=== PATIENT | male | born 1955 | race African-American/Black ===

== ENCOUNTER 2025-05-10 03:23 | Inpatient (IN) | payer OTHER, MEDICAID, MEDICARE ==
[2025-05-10] VITALS (71 sets, daily range): BP systolic 84–145; BP diastolic 68–96; PULSE 87–130; RESP 14–28; TEMP 37.1–37.6; O2SAT 95–100
[~2025-05-10] VITALS: Ht 175.3 cm; Wt 68.0 kg
[2025-05-10] MEDS: ALBUTEROL (0.083%) 2.5MG/3ML NEB HHN ONE (03:30)
[2025-05-10] MEDS: LEVETIRACETAM 500MG PREMIX 100 ML IV ONE (03:55)
[2025-05-10 04:12] LABS: INR 1.5
[2025-05-10 04:15] LABS: CREATININE 1.0 mg/dL (0.6-1.3); TROPONIN I HIGH SENSITIVITY 13 ng/L (3.0-53); UREA NITROGEN BLOOD 11 mg/dL (9-23)
[2025-05-10 04:17] LABS: ASPARTATE AMINOTRANSFERASE 99 IU/L (<34); BILIRUBIN DIRECT 0.8 mg/dL (<=3.0)
[2025-05-10 04:18] LABS: BASOPHILS % 0.3 % (0.0-2.0); BILIRUBIN TOTAL 1.7 mg/dL (0.1-1.0); EOSINOPHILS % 1.8 % (0.0-5.0); HEMATOCRIT. 45.4 % (42.0-52.0); HEMOGLOBIN. 13.8 g/dL (14.0-18.0); LYMPHOCYTES % 29.9 % (20.0-50.0); MEAN PLATELET VOLUME 8.6 fl (7.4-10.4); MONOCYTES % 9.0 % (2.0-8.0); NEUTROPHILS % 59.0 % (40.0-76.0); PLATELET 109 x1000/uL (130-400); PROTEIN TOTAL 6.5 g/dL (6.0-8.3); RED BLOOD CELL COUNT 4.08 mill/uL (4.7-6.1); RED CELL DISTRIBUTION WIDTH 14.6 % (11.6-14.6)
[2025-05-10 04:23] LABS: ADD RBC MORPHOLOGY YES
[2025-05-10] MEDS: LORAZEPAM 2MG/ML UD SYRINGE IV SCH (04:53)
[2025-05-10 05:27] LABS: BG BASE EXCESS -10.9 mmol/L (-2.0-3.0); BG CARBOXYHEMOGLOBIN 1.5 % (0.5-1.5); BG DEOXYHEMOGLOBIN 6.3 % (0.0-5.0); BG FRACTION INSPIRED OXYGEN 30; BG HCO3 ACT 17.8 mmol/L (21.0-28.0); BG METHEMOGLOBIN 0.2 % (0.5-1.5); BG OXYGEN SATURATION 93.6 % (94.0-98.0); BG OXYHEMOGLOBIN 92.0 % (94.0-98.0); BG PCO2 50.5 mmHg (35.0-48.0); BG PH 7.166 (7.350-7.450); BG PO2 82.5 mmHg (83.0-108.0); BG SAMPLE SITE RIGHT RADIAL; BG TOTAL HEMOGLOBIN 14.9 g/dL (13.5-17.5); BG VENT MODE MASK - BIPAP; BG VENT RATE 18.0 set
[2025-05-10] MEDS: SUCCINYLCHOLINE CHLORIDE 200MG/10ML IV SCH (06:15)
[2025-05-10] MEDS: ETOMIDATE 2MG/ML 10ML VIAL IV SCH (06:15)
[2025-05-10] MEDS: PROPOFOL 10MG/ML 100ML 100 ML IV PRN ×2 (06:27→10:33)
[2025-05-10 06:38] LABS: INFLUENZA TYPE A Presumptive Negative (Pres. Neg.)
[2025-05-10 06:39] LABS: INFLUENZA TYPE B Presumptive Negative (Pres. Neg.)
[2025-05-10 06:41] LABS: RESPIRATORY SYNCYTIAL VIRUS Not Detected (Not Detectd)
[2025-05-10 07:13] LABS: PLATELET ESTIMATE SLIGHTLY DECREASED
[2025-05-10] MEDS ORDERED: PROPOFOL 10MG/ML 100ML 100 ML IV SCH (08:30)
[2025-05-10] MEDS ORDERED: DOCUSATE SODIUM 100MG CAPSULE PO PRN (08:30)
[2025-05-10] MEDS ORDERED: DEXTROSE 50% WATER 50ML SYRINGE IV PRN (09:15)
[2025-05-10] MEDS ORDERED: LORAZEPAM 2MG/ML UD SYRINGE IV PRN (09:15)
[2025-05-10] MEDS: LEVETIRACETAM 1000MG PREMIX 100 ML IV SCH (10:03)
[2025-05-10] MEDS: LACTATED RINGERS 1,000 ML IV SCH (10:03)
[2025-05-10] MEDS ORDERED: ONDANSETRON HCL 4MG/2ML INJ IV PRN (10:15)
[2025-05-10] MEDS: PIPERACILLIN/TAZO 3.375G/50ML 50 ML IV SCH (10:33)
[2025-05-10 11:25] LABS: BG BASE EXCESS 3.1 mmol/L (-2.0-3.0); BG CARBOXYHEMOGLOBIN 1.0 % (0.5-1.5); BG DEOXYHEMOGLOBIN 1.5 % (0.0-5.0); BG FRACTION INSPIRED OXYGEN 60; BG HCO3 ACT 29.5 mmol/L (21.0-28.0); BG METHEMOGLOBIN 0.1 % (0.5-1.5); BG OXYGEN SATURATION 98.5 % (94.0-98.0); BG OXYHEMOGLOBIN 97.4 % (94.0-98.0); BG PCO2 51.5 mmHg (35.0-48.0); BG PEEP (cmH2O) 5.0 cmH2O; BG PH 7.376 (7.350-7.450); BG PO2 110.2 mmHg (83.0-108.0); BG SAMPLE SITE RIGHT BRACHIAL; BG TIDAL VOLUME(mL) 450.0 mL; BG TOTAL HEMOGLOBIN 15.8 g/dL (13.5-17.5); BG VENT MODE VENT - PRVC; BG VENT RATE 18.0 set
[2025-05-10] MEDS: MULTIVITAMINS,THER W-MINERALS TABLET PO SCH (11:30)
[2025-05-10] MEDS ORDERED: FENTANYL CITRATE/PF 1,000 MCG in SODIUM CHLORIDE 0.9% 80 ML IV PRN (13:00)
[2025-05-10] MEDS: BLOOD SUGAR DIAGNOSTIC STRIP TEST SCH (13:01)
[2025-05-10] MEDS: AZITHROMYCIN 500MG/250ML 250 ML IV SCH (13:02)
[2025-05-10] MEDS: VANCOMYCIN 1.5GM PMX (XELLIA) 300 ML IV SCH (13:02)
[2025-05-10] MEDS: INSULIN LISPRO 100 UNITS/ML SUBCUT SCH (13:02)
[2025-05-10] MEDS: PANTOPRAZOLE SODIUM 40 MG/VIAL IV SCH (13:30)
[2025-05-10] MEDS: CHLORDIAZEPOXIDE 25MG CAPSULE PO PRN (13:31)
[2025-05-10] MEDS: FENTANYL 2500MCG/250ML PMX 250 ML IV PRN (14:28)
[2025-05-10] MEDS: IPRATROPIUM/ALBUTEROL 0.5-3(2.5)MG/3ML NEB HHN PRN (20:10)
[2025-05-10] MEDS: VANCOMYCIN 750MG PREMIX 150 ML IV SCH (20:54)
[2025-05-10 21:20] LABS: LACTATE DEHYDROGENASE 310.0 IU/L (120-246)
[2025-05-10] MEDS ORDERED: IOHEXOL-350 100 ML BOTTLE ONE (23:24)
[2025-05-11] VITALS (93 sets, daily range): BP systolic 76–144; BP diastolic 58–101; PULSE 71–122; RESP 5–27; TEMP 36.8–38.1; O2SAT 93–100
[2025-05-11 04:13] LABS: CLARITY URINE CLEAR (CLEAR); COLOR URINE YELLOW (YELLOW); GLUCOSE URINE NEGATIVE (NEGATIVE); KETONES URINE NEGATIVE (NEGATIVE); LEUKOCYTE ESTERASE URINE NEGATIVE (NEGATIVE); NITRITE URINE NEGATIVE (NEGATIVE); OCCULT BLOOD URINE NEGATIVE (NEGATIVE); PH URINE 5.5 (4.5-8.0); PROTEIN URINE NEGATIVE (NEGATIVE); SPECIFIC GRAVITY URINE 1.041 (1.005-1.030); UROBILINOGEN URINE 0.2 E.U./dL (0.2-1.0)
[2025-05-11 05:13] LABS: *AMPHETAMINES SCREEN URINE NEGATIVE (NEGATIVE); *BARBITURATES SCREEN URINE NEGATIVE (NEGATIVE); *BENZODIAZEPINES SCREEN URINE NEGATIVE (NEGATIVE); *COCAINE SCREEN URINE NEGATIVE (NEGATIVE); METHADONE URINE SCREEN NEGATIVE (NEGATIVE); OPIATES URINE SCREEN NEGATIVE (NEGATIVE); PHENCYCLIDINE URINE SCREEN NEGATIVE (NEGATIVE)
[2025-05-11 05:14] LABS: CANNABINOID URINE SCREEN NEGATIVE (NEGATIVE); ECSTASY MDMA SCREEN URINE NEGATIVE (NEGATIVE)
[2025-05-11 06:29] LABS: HEMATOCRIT. 37.9 % (42.0-52.0); HEMOGLOBIN. 12.7 g/dL (14.0-18.0); MEAN PLATELET VOLUME 8.3 fl (7.4-10.4); PLATELET 92 x1000/uL (130-400); RED BLOOD CELL COUNT 3.71 mill/uL (4.7-6.1); RED CELL DISTRIBUTION WIDTH 13.1 % (11.6-14.6)
[2025-05-11 06:55] LABS: CREATININE 1.1 mg/dL (0.6-1.3); TRIGLYCERIDE 100 mg/dL (0-150); UREA NITROGEN BLOOD 13 mg/dL (9-23)
[2025-05-11 06:56] LABS: LDL CHOLESTEROL 72 mg/dL (5-100); T4 FREE 1.18 ng/dL (0.89-1.76)
[2025-05-11 09:07] LABS: BG BASE EXCESS 1.7 mmol/L (-2.0-3.0); BG CARBOXYHEMOGLOBIN 1.9 % (0.5-1.5); BG DEOXYHEMOGLOBIN 4.8 % (0.0-5.0); BG FRACTION INSPIRED OXYGEN 40; BG HCO3 ACT 29.0 mmol/L (21.0-28.0); BG METHEMOGLOBIN 0.1 % (0.5-1.5); BG OXYGEN SATURATION 95.1 % (94.0-98.0); BG OXYHEMOGLOBIN 93.2 % (94.0-98.0); BG PCO2 56.6 mmHg (35.0-48.0); BG PEEP (cmH2O) 5.0 cmH2O; BG PH 7.328 (7.350-7.450); BG PO2 76.8 mmHg (83.0-108.0); BG SAMPLE SITE RIGHT BRACHIAL; BG TIDAL VOLUME(mL) 450.0 mL; BG TOTAL HEMOGLOBIN 14.6 g/dL (13.5-17.5); BG VENT MODE VENT - PRVC; BG VENT RATE 20.0 set
[2025-05-11] MEDS ORDERED: NOREPINEPHRINE 8MG/250ML PMX 250ML IV PRN (10:45)
[2025-05-11] MEDS ORDERED: NOREPINEPHRINE 8 MG in DEXT 5% WATER 242 ML IV PRN (10:45)
[2025-05-11 20:30] LABS: EOSINOPHILS % MANUAL 6.0 % (0.0-5.0); LYMPHOCYTES % MANUAL 21.0 % (20.0-50.0); MONOCYTES % MANUAL 10.0 % (2.0-8.0); NEUTROPHILS % MANUAL 63.0 % (45.0-75.0); PLATELET ESTIMATE DECREASED
[2025-05-11] MEDS: PROPOFOL 10MG/ML 100ML 100 ML IV PRN (22:05)
[2025-05-11 23:08] LABS: BODY FLUID MONOCYTES 7 %; BODY FLUID RBC 112 /cu mm (0-2000); BODY FLUID WBC 73 /cu mm (0-200)
[2025-05-12] VITALS (92 sets, daily range): BP systolic 102–173; BP diastolic 73–114; PULSE 72–125; RESP 10–35; TEMP 37.2–37.7; O2SAT 99–100
[2025-05-12 06:43] LABS: BASOPHILS % 0.5 % (0.0-2.0); EOSINOPHILS % 3.5 % (0.0-5.0); HEMATOCRIT. 38.6 % (42.0-52.0); HEMOGLOBIN. 13.3 g/dL (14.0-18.0); LYMPHOCYTES % 19.6 % (20.0-50.0); MEAN PLATELET VOLUME 8.6 fl (7.4-10.4); MONOCYTES % 11.3 % (2.0-8.0); NEUTROPHILS % 65.1 % (40.0-76.0); PLATELET 82 x1000/uL (130-400); RED BLOOD CELL COUNT 3.84 mill/uL (4.7-6.1); RED CELL DISTRIBUTION WIDTH 13.0 % (11.6-14.6)
[2025-05-12 06:58] LABS: CREATININE 0.8 mg/dL (0.6-1.3); TRIGLYCERIDE 103 mg/dL (0-150); UREA NITROGEN BLOOD 13 mg/dL (9-23)
[2025-05-12] MEDS: ENOXAPARIN 40MG/0.4ML SYR SUBCUT SCH (08:30)
[2025-05-12 08:36] LABS: BG BASE EXCESS 1.6 mmol/L (-2.0-3.0); BG CARBOXYHEMOGLOBIN 0.9 % (0.5-1.5); BG DEOXYHEMOGLOBIN 3.3 % (0.0-5.0); BG FRACTION INSPIRED OXYGEN 40; BG HCO3 ACT 27.8 mmol/L (21.0-28.0); BG METHEMOGLOBIN 0.3 % (0.5-1.5); BG OXYGEN SATURATION 96.7 % (94.0-98.0); BG OXYHEMOGLOBIN 95.5 % (94.0-98.0); BG PCO2 49.5 mmHg (35.0-48.0); BG PEEP (cmH2O) 5.0 cmH2O; BG PH 7.367 (7.350-7.450); BG PO2 86.3 mmHg (83.0-108.0); BG SAMPLE SITE RIGHT RADIAL; BG TIDAL VOLUME(mL) 450.0 mL; BG TOTAL HEMOGLOBIN 14.5 g/dL (13.5-17.5); BG VENT MODE VENT - PRVC; BG VENT RATE 20.0 set
[2025-05-12] MEDS: LORAZEPAM 2MG/ML UD SYRINGE IV PRN (15:45)
[2025-05-13] VITALS (43 sets, daily range): BP systolic 104–168; BP diastolic 76–119; PULSE 78–112; RESP 14–28; TEMP 35.8–37.6; O2SAT 96–100
[2025-05-13 07:09] LABS: BASOPHILS % 0.6 % (0.0-2.0); EOSINOPHILS % 3.1 % (0.0-5.0); HEMATOCRIT. 40.5 % (42.0-52.0); HEMOGLOBIN. 13.7 g/dL (14.0-18.0); LYMPHOCYTES % 18.4 % (20.0-50.0); MEAN PLATELET VOLUME 8.7 fl (7.4-10.4); MONOCYTES % 9.0 % (2.0-8.0); NEUTROPHILS % 68.9 % (40.0-76.0); PLATELET 91 x1000/uL (130-400); RED BLOOD CELL COUNT 4.05 mill/uL (4.7-6.1); RED CELL DISTRIBUTION WIDTH 12.6 % (11.6-14.6)
[2025-05-13 07:18] LABS: CREATININE 0.8 mg/dL (0.6-1.3); UREA NITROGEN BLOOD 9 mg/dL (9-23)
[2025-05-13] MEDS: THIAMINE HCL 100MG TABLET PO SCH (08:32)
[2025-05-13 09:25] LABS: BG BASE EXCESS 2.9 mmol/L (-2.0-3.0); BG CARBOXYHEMOGLOBIN 1.3 % (0.5-1.5); BG DEOXYHEMOGLOBIN 3.1 % (0.0-5.0); BG FRACTION INSPIRED OXYGEN 30; BG HCO3 ACT 27.7 mmol/L (21.0-28.0); BG METHEMOGLOBIN 0.1 % (0.5-1.5); BG OXYGEN SATURATION 96.9 % (94.0-98.0); BG OXYHEMOGLOBIN 95.5 % (94.0-98.0); BG PCO2 43.2 mmHg (35.0-48.0); BG PEEP (cmH2O) 5.0 cmH2O; BG PH 7.425 (7.350-7.450); BG PO2 84.7 mmHg (83.0-108.0); BG SAMPLE SITE RIGHT RADIAL; BG TIDAL VOLUME(mL) 500.0 mL; BG TOTAL HEMOGLOBIN 14.0 g/dL (13.5-17.5); BG VENT MODE VENT - SIMV; BG VENT RATE 10.0 set
[2025-05-13 16:54] LABS: BG BASE EXCESS 5.9 mmol/L (-2.0-3.0); BG CARBOXYHEMOGLOBIN 1.3 % (0.5-1.5); BG DEOXYHEMOGLOBIN 4.7 % (0.0-5.0); BG FLOW(L/min) 2.00 L/min; BG FRACTION INSPIRED OXYGEN 28; BG HCO3 ACT 31.1 mmol/L (21.0-28.0); BG METHEMOGLOBIN 0.1 % (0.5-1.5); BG OXYGEN SATURATION 95.2 % (94.0-98.0); BG OXYHEMOGLOBIN 93.9 % (94.0-98.0); BG PCO2 47.0 mmHg (35.0-48.0); BG PH 7.439 (7.350-7.450); BG PO2 73.8 mmHg (83.0-108.0); BG SAMPLE SITE RIGHT RADIAL; BG TOTAL HEMOGLOBIN 14.6 g/dL (13.5-17.5); BG VENT MODE NASAL CANNULA
[2025-05-13] MEDS: FAMOTIDINE 20MG TABLET PO SCH (21:28)
[2025-05-13] MEDS: LEVETIRACETAM 500MG TABLET PO SCH (21:28)
[2025-05-14] VITALS: BP 119/82; PULSE 84; RESP 19; TEMP 36.6; O2SAT 100
[2025-05-14 04:00] VITALS: BP 124/90; PULSE 86; RESP 19; TEMP 36.6; O2SAT 96
[2025-05-14 08:00] VITALS: BP 111/76; PULSE 77; RESP 17; TEMP 36.8; O2SAT 98
[2025-05-14] MEDS: POLYETHYLENE GLYCOL 3350 (17GM) 1 DOSE PACK PO SCH (11:30)
[2025-05-14 12:00] VITALS: BP 113/89; PULSE 95; RESP 17; TEMP 36.6; O2SAT 97
[2025-05-14 16:00] VITALS: BP 117/87; PULSE 91; RESP 17; TEMP 36.5; O2SAT 98
[2025-05-14] MEDS ORDERED: METHYLPREDNISOLONE SOD SUCC 40MG/ML (ACT-O-VIAL) IV SCH (18:00)
[2025-05-14 20:00] VITALS: BP 121/94; PULSE 97; RESP 20; TEMP 36.4; O2SAT 94
[2025-05-14] MEDS: CHLORDIAZEPOXIDE 25MG CAPSULE PO PRN (21:07)
[2025-05-15] VITALS: BP 110/75; PULSE 96; RESP 20; TEMP 37; O2SAT 96
== END 2025-05-15 02:47 | disposition short-term general hospital (02) | DRG 871 ==
LOC: ER 03:23 → CVICU 06:05 → EDBEDREQ 06:09 → EDBEDREQSVC 06:09 → EDBEDREQTM 06:09 → ENRESERV 07:23 → 7EST 05-13 16:57
PROVIDERS: ADMIT Internal Medicine; ATTEND Internal Medicine
PROC: 5A1945Z Respiratory Ventilation, 24-96 Consecutive Hours (ICD-10-PCS; principal; 2025-05-10)
PROC: 0BH17EZ Insertion of Endotracheal Airway into Trachea, Via Natural or Artificial Opening (ICD-10-PCS; 2025-05-10)
PROC: 5A09357 Assistance with Respiratory Ventilation, Less than 24 Consecutive Hours, Continuous Positive Airway Pressure (ICD-10-PCS; 2025-05-10)
PROC: 0W993ZZ Drainage of Right Pleural Cavity, Percutaneous Approach (ICD-10-PCS; 2025-05-11)
PROC: 4A00X4Z Measurement of Central Nervous Electrical Activity, External Approach (ICD-10-PCS; 2025-05-11)
DX: A41.9 Sepsis, unspecified organism (principal); G93.41 Metabolic encephalopathy; J18.9 Pneumonia, unspecified organism; J96.01 Acute respiratory failure with hypoxia; I50.40 Unspecified combined systolic (congestive) and diastolic (congestive) heart failure; J44.0 Chronic obstructive pulmonary disease with (acute) lower respiratory infection; I11.0 Hypertensive heart disease with heart failure; D53.9 Nutritional anemia, unspecified; Z20.822 Contact with and (suspected) exposure to COVID-19; D69.6 Thrombocytopenia, unspecified; D75.89 Other specified diseases of blood and blood-forming organs; E11.9 Type 2 diabetes mellitus without complications; F10.20 Alcohol dependence, uncomplicated; F14.90 Cocaine use, unspecified, uncomplicated; R74.01 Elevation of levels of liver transaminase levels; G40.909 Epilepsy, unspecified, not intractable, without status epilepticus; B18.2 Chronic viral hepatitis C; K74.60 Unspecified cirrhosis of liver
CPT/HCPCS: 31500; 31720; 32555; 36415; 36600; 71045; 71250; 74177; 80048; 80061; 80076; 80202; 80305; 80320; 81003; 82040; 82140; 82375; 82550; 82805; 82962; 83036; 83615; 83880; 84145; 84155; 84439; 84443; 84478; 84484; 85025; 87070; 87420; 87426; 87804; 93005; 93970; 94002; 94003; 94070; 94640; 94660; 94664; 94760; 95816; 96365; 96375; 97166; 97535; 98960; 99291; A4606; A6449; J0456; J1650; J1953; J2060; J2470; J2543; J2704; J3010; J3373; J7120; Q9967; G0480